=== PATIENT | male | born 1970 | race Caucasian/White ===

== ENCOUNTER → 2023-07-12 09:35 | Outpatient (CLI) | payer MEDICAID, SELFPAY | PROVIDERS: PCP Nurse Practitioner Family; Visit Provider Specialist | DX: G45.8 Other transient cerebral ischemic attacks and related syndromes (principal) | CPT/HCPCS: 93225 ==

== ENCOUNTER → 2023-08-02 14:01 | Outpatient (CLI) | payer MEDICAID, SELFPAY | PROVIDERS: PCP Nurse Practitioner Family; Visit Provider Specialist | DX: G47.33 Obstructive sleep apnea (adult) (pediatric) (principal); G45.8 Other transient cerebral ischemic attacks and related syndromes; G47.9 Sleep disorder, unspecified | CPT/HCPCS: 95806 ==